=== PATIENT | female | born 1950 | race African-American/Black ===

== ENCOUNTER 2017-11-28 09:16 | Emergency (ER) | payer OTHER, SELFPAY ==
[2017-11-28] MEDS ORDERED: ONDANSETRON 4 MG/2 ML VIAL ONE (10:02)
[2017-11-28 10:26] LABS: Absolute Lymphocytes (CBC) 1.9 K/uL (0.7-4.9); Absolute Monocytes 0.8 K/uL (0.1-1.3); Basophils % 0.6 % (0-1.3); Hematocrit 41.3 % (36.0-45.0); MCH 32.8 pg (27.0-35.0); MCV 97.6 fL (80-100); MPV 7.6 fL (7.6-11.3); Monocytes % 6.9 % (3.3-12.3); RBC Red Blood Cell Count 4.23 M/uL (3.86-4.86)
[2017-11-28 10:44] LABS: ALT/SGPT 20 U/L (12-78); AST/SGOT 20 U/L (15-37); Albumin 3.5 g/dL (3.4-5.0); Alkaline Phosphatase 115 U/L (45-117); BUN Blood Urea Nitrogen 10 mg/dL (7-18); Bicarbonate 27 mmol/L (21-32); Bilirubin Direct < 0.1 mg/dL (0-0.2); Bilirubin Total 0.2 mg/dL (0.2-1.0); Glucose Level 94 mg/dL (74-106); Lipase 86 U/L (73-393); Potassium 4.5 mmol/L (3.5-5.1); Protein, Total 7.3 g/dL (6.4-8.2); Sodium Level 141 mmol/L (136-145)
[2017-11-28 11:39] LABS: Urine Amorphous Sediment 3+ /HPF (NONE SEEN); Urine Bacteria NONE SEEN /HPF (<20); Urine Culture Reflex Order NOT NEEDED; Urine RBC NONE SEEN /HPF (NONE SEEN)
--- NOTE | 2017-11-28 12:12 | RAD REPORT ---
EXAM DESCRIPTION: CTAbdomen Pelvis W Contrast - 11/28/2017 11:47 am CLINICAL HISTORY: Abdominal pain. ABD PAIN COMPARISON: Abdomen Pelvis W Contrast dated 11/12/2016 TECHNIQUE: Biphasic CT imaging of the abdomen and pelvis was performed with 100 ml non-ionic IV cont rast. All CT scans are performed using dose optimization technique as appropriate and may include automated exposure control or mA/KV adjustment according to patient size. FINDINGS: The lung bases are clear.Small hiatal hernia. The liver, spleen, pancreas, right adrenal gland and kidneys are within normal limits. 3 cm left adre nal mass, stable. No bowel obstruction, free air, free fluid or abscess. Scattered colonic diverticulosis. Inflammatory changes are present in the left lower quadrant involving the a segment of distal descending colon me asuring 3 cm. Appendectomy. No evidence of significant lymphadenopathy. No suspicious bony findings. IMPRESSION: Short segment of the sigmoid colon shows wall thickening and inflammatory changes most s uggestive of acute diverticulitis. A similar finding was present on the prior study as well in this r egion. Followup colonoscopy would be recommended evaluate for underlying mass.
--- NOTE | 2017-11-28 12:16 | EDPHYS ---
Physician Documentation [facility] Name: Irma Godoy Age: 67 yrs Sex: Female : 1950 Arrival Date: 11/28/2017 Time: 09:17 Bed 20 Private MD: None, None ED Physician Rafy Carias HPI: 11/28 09:49 This 67 yrs old Black Female presents to ER via Ambulatory with complaints of Abdominal rn Pain. 09:49 The patient presents with abdominal pain in the left lower quadrant. Onset: The rn symptoms/episode began/occurred yesterday. The symptoms do not radiate. Associated signs and symptoms: Pertinent positives: diarrhea, nausea, Pertinent negatives: blood in stools, fever. The symptoms are described as intermittent, sharp. Modifying factors: The symptoms are alleviated by nothing, the symptoms are aggravated by nothing. Severity of pain: At its worst the pain was mild in the emergency department the pain is unchanged. The patient has experienced a previous episode. The patient has not recently seen a physician. Historical: - Allergies: :33 No Known Allergies; hb - Home Meds: 09:33 Truvada oral oral [Active]; Norvir oral oral [Active]; Prezista oral oral [Active]; hb - PMHx: 09:33 HIV; hb - PSHx: 09:33 Appendectomy; Hysterectomy; Hernia repair; hb - Immunization history:: Adult Immunizations up to date. - Social history:: Smoking status: Patient/guardian denies using tobacco. - Ebola Screening: : No symptoms or risks identified at this time. - Family history:: not pertinent. - Hospitalizations: : No recent hospitalization is reported. ROS: 09:49 Constitutional: Negative for fever, chills, and weight loss, Eyes: Negative for injury, rn pain, redness, and discharge, Cardiovascular: Negative for chest pain, palpitations, and edema, Respiratory: Negative for shortness of breath, cough, wheezing, and pleuritic chest pain, Abdomen/GI: + abd pain/nausea/diarrhea MS/Extremity: Negative for injury and deformity, Skin: Negative for injury, rash, and discoloration, Neuro: Negative for headache, weakness, numbness, tingling, and seizure. Exam: 09:49 Constitutional: This is a well developed, well nourished patient who is awake, alert, rn and in no acute distress. Head/Face: Normocephalic, atraumatic. Cardiovascular: Regular rate and rhythm with a normal S1 and S2. No gallops, murmurs, or rubs. Normal PMI, no JVD. No pulse deficits. Respiratory: Lungs have equal breath sounds bilaterally, clear to auscultation and percussion. No rales, rhonchi or wheezes noted. No increased work of breathing, no retractions or nasal flaring. Abdomen/GI: soft, + LLQ tenderness, no rebound, no masses Back: No spinal tenderness. No costovertebral tenderness. Full range of motion. Skin: Warm, dry with normal turgor. Normal color with no rashes, no lesions, and no evidence of cellulitis. MS/ Extremity: Pulses equal, no cyanosis. Neurovascular intact. Full, normal range of motion. Equal circumference. Neuro: Awake and alert, GCS 15, oriented to person, place, time, and situation. Cranial nerves II-XII grossly intact. Motor strength 5/5 in all extremities. Sensory grossly intact. Vital Signs: 09:27 BP 118 / 91; Pulse 73; Resp 16; Temp 97.5(TE); Pulse Ox 100% on R/A; Pain 8/10; hb 11:15 BP 120 / 71; Pulse 82; Resp 18; Pulse Ox 97% on R/A; aj1 13:12 BP 121 / 90; Pulse 80; Resp 18; Pulse Ox 97% on R/A; aj1 MDM: 09:25 Patient medically screened. rn 12:14 Differential diagnosis: diverticulitis, non-specific abd pain, Ureterolithiasis, rn urinary tract infection. Data reviewed: vital signs, nurses notes, lab test result(s), radiologic studies, CT scan, and as a result, I will discharge patient. Counseling: I had a detailed discussion with the patient and/or guardian regarding: the historical points, exam findings, and any diagnostic results supporting the discharge/admit diagnosis, lab results, radiology results, the need for outpatient follow up, to return to the emergency department if symptoms worsen or persist or if there are any questions or concerns that arise at home. Response to treatment: the patient's symptoms have mildly improved after treatment, and as a result, I will discharge patient. Special discussion: Based on the patient's Hx, exam, and Dx evaluation, there is no indication for emergent surgery or inpatient Tx. It is understood by the patient/guardian that if the Sx's persist or worsen they need to return immediately for re-evaluation. I discussed with the patient/guardian in detail that at this point there is no indication for admission to the hospital. It is understood, however, that if the symptoms persist or worsen the patient needs to return immediately for re-evaluation. 11/28 09:49 Order name: Basic Metabolic Panel; Complete Time: 11:55 rn 11/28 09:49 Order name: CBC with Diff; Complete Time: 10:34 rn 11/28 09:49 Order name: Hepatic Function; Complete Time: rn 11/28 09:49 Order name: Lipase; Complete Time: rn 11/28 09:49 Order name: Urine Microscopic Only; Complete Time: : rn 11/28 11:03 Order name: Urine Dipstick--Ancillary (enter results) bd 11/28 09:49 Order name: IV Saline Lock; Complete Time: 10:11 rn 11/28 09:49 Order name: Labs collected and sent; Complete Time: 10:11 rn 11/28 09:49 Order name: CT Abd/Pelvis - W/Contrast; Complete Time: 12:13 rn 11/28 09:49 Order name: Urine Dipstick-Ancillary (obtain specimen); Complete Time: 10:25 rn Administered Medications: 10:10 Drug: Zofran 4 mg Route: IVP; Site: left forearm; aj1 12:53 Follow up: Response: No adverse reaction aj1 13:11 Drug: Cipro 400 mg Volume: 200 ml; Route: IVPB; Infused Over: 60 mins; Site: left aj1 forearm; 13:11 Drug: Flagyl 500 mg Volume: 100 ml; Route: IVPB; Rate: 200 ml/hr; Infused Over: 30 aj1 mins; Site: left forearm; Disposition: 11/28/17 12:15 Discharged to Home. Impression: Diverticulitis of large intestine without perforation or abscess without bleeding. - Condition is Stable. - Discharge Instructions: Diverticulitis. - Prescriptions for Flagyl 500 mg Oral Tablet - take 1 tablet by ORAL route every 8 hours for 10 days; 30 tablet. Cipro 500 mg Oral Tablet - take 1 tablet by ORAL route every 12 hours for 10 days; 20 tablet. Zofran ODT 4 mg Oral tablet,disintegrating - place 1 tablet by TRANSLINGUAL route every 8-10 hours As needed; 15 tablet. - Medication Reconciliation Form, Thank You Letter, Antibiotic Education, Prescription Opioid Use, Work release form form. - Follow up: Private Physician; When: As needed; Reason: Recheck today's complaints, Re-evaluation by your physician. - Problem is new. - Symptoms have improved. Signatures: Dispatcher [employer] EDVianney Loredo RN RN aj1 Rafy Carias MD MD rn Baxter, Heather, RN RN Lubna Zamudio RN RN tw2 Corrections: (The following items were deleted from the chart) 14:54 12:15 11/28/2017 12:15 Discharged to Home. Impression: Diverticulitis of large tw2 intestine without perforation or abscess without bleeding. Condition is Stable. Forms are Medication Reconciliation Form, Thank You Letter, Antibiotic Education, Prescription Opioid Use. Follow up: Private Physician; When: As needed; Reason: Recheck today's complaints, Re-evaluation by your physician. Problem is new. Symptoms have improved. rn
--- NOTE | 2017-11-28 12:16 | ER ---
Nurse's Notes [facility] Name: Irma Godoy Age: 67 yrs Sex: Female : 1950 Arrival Date: 11/28/2017 Time: 09:17 Bed 20 Private MD: None, None Diagnosis: Diverticulitis of large intestine without perforation or abscess without bleeding Presentation: 11/28 09:26 Presenting complaint: Patient states: LLQ pain that started last night, nausea and hb diarrhea since this morning. Transition of care: patient was not received from another setting of care. Onset of symptoms was November 27, 2017. Risk Assessment: Do you want to hurt yourself or someone else? Patient reports no desire to harm self or others. Care prior to arrival: None. : Method Of Arrival: Ambulatory hb : Acuity: KATHERINE 3 hb 14:53 Initial Sepsis Screen: Does the patient meet any 2 criteria? No. Patient's initial tw2 sepsis screen is negative. Does the patient have a suspected source of infection? No. Patient's initial sepsis screen is negative. Historical: - Allergies: :33 No Known Allergies; hb - Home Meds: 09:33 Truvada oral oral [Active]; Norvir oral oral [Active]; Prezista oral oral [Active]; hb - PMHx: :33 HIV; hb - PSHx: 09:33 Appendectomy; Hysterectomy; Hernia repair; hb - Immunization history:: Adult Immunizations up to date. - Social history:: Smoking status: Patient/guardian denies using tobacco. - Ebola Screening: : No symptoms or risks identified at this time. - Family history:: not pertinent. - Hospitalizations: : No recent hospitalization is reported. Screenin:34 Abuse screen: Denies threats or abuse. Denies injuries from another. Nutritional hb screening: No deficits noted. Tuberculosis screening: No symptoms or risk factors identified. Fall Risk None identified. Assessment: 10:12 General: Appears in no apparent distress. comfortable, Behavior is calm, cooperative, aj1 appropriate for age. Pain: Complains of pain in abdomen. Neuro: Level of Consciousness is awake, alert, obeys commands. Cardiovascular: Patient's skin is warm and dry. Respiratory: Airway is patent Respiratory effort is even, unlabored, Respiratory pattern is regular, symmetrical. GI: Abdomen is non-distended, Reports diarrhea, nausea, Patient currently denies vomiting. : No signs and/or symptoms were reported regarding the genitourinary system. EENT: No signs and/or symptoms were reported regarding the EENT system. Derm: No signs and/or symptoms reported regarding the dermatologic system. Skin is pink, warm \T\ dry. normal. Musculoskeletal: No signs and/or symptoms reported regarding the musculoskeletal system. Circulation, motion, and sensation intact. 10:26 Reassessment: Notified Sherron in [place] that patient finished her contrast at 1010. aj1 11:15 Reassessment: Patient appears in no apparent distress at this time. No changes from aj1 previously documented assessment. Patient and/or family updated on plan of care and expected duration. Pain level reassessed. Patient is alert, oriented x 3, equal unlabored respirations, skin warm/dry/pink. 11:40 Reassessment: Patient taken to CT via wheelchair. aj1 12:00 Reassessment: Patient returned to room. aj1 12:15 Reassessment: Patient appears in no apparent distress at this time. No changes from aj1 previously documented assessment. Patient and/or family updated on plan of care and expected duration. Pain level reassessed. Patient is alert, oriented x 3, equal unlabored respirations, skin warm/dry/pink. 13:11 Reassessment: Patient appears in no apparent distress at this time. No changes from aj1 previously documented assessment. Patient and/or family updated on plan of care and expected duration. Pain level reassessed. Patient is alert, oriented x 3, equal unlabored respirations, skin warm/dry/pink. 13:11 Reassessment: Patient discharge pending finishing IV antibiotics. aj1 Vital Signs: 09:27 BP 118 / 91; Pulse 73; Resp 16; Temp 97.5(TE); Pulse Ox 100% on R/A; Pain 8/10; hb 11:15 BP 120 / 71; Pulse 82; Resp 18; Pulse Ox 97% on R/A; aj1 13:12 BP 121 / 90; Pulse 80; Resp 18; Pulse Ox 97% on R/A; aj1 ED Course: 09:17 Patient arrived in ED. sb2 09:17 None, None is Private Physician. sb2 09:22 Lubna Zamudio, KAREEM is Primary Nurse. tw2 09:25 Rafy Carais MD is Attending Physician. rn 09:27 Triage completed. hb 09:33 Arm band placed on left wrist. hb 09:50 Report given to KAREEM Cruz. tw2 09:56 Missed attempt(s): 20 gauge in left antecubital area. by ERT. Eliud Bleeding aj1 controlled, band aid applied, catheter tip intact. 10:11 Inserted saline lock: 22 gauge in left forearm, using aseptic technique. aj1 10:12 Patient has correct armband on for positive identification. aj1 10:12 No provider procedures requiring assistance completed. aj1 11:46 CT completed. Patient tolerated procedure well. Patient moved to CT via wheelchair. Patient moved back from CT. 11:47 CT Abd/Pelvis - W/Contrast In Process Unspecified. EDMS 12:52 Vianney Meeks, RN is Primary Nurse. aj1 14:53 IV discontinued, intact, bleeding controlled, No redness/swelling at site. Pressure tw2 dressing applied. Administered Medications: 10:10 Drug: Zofran 4 mg Route: IVP; Site: left forearm; aj1 12:53 Follow up: Response: No adverse reaction aj1 13:11 Drug: Cipro 400 mg Volume: 200 ml; Route: IVPB; Infused Over: 60 mins; Site: left aj1 forearm; 13:11 Drug: Flagyl 500 mg Volume: 100 ml; Route: IVPB; Rate: 200 ml/hr; Infused Over: 30 aj1 mins; Site: left forearm; Outcome: 12:15 Discharge ordered by . rn 14:53 Discharged to home ambulatory. tw2 14:53 Condition: stable 14:53 Discharge instructions given to patient, Instructed on discharge instructions, follow up and referral plans. medication usage, Demonstrated understanding of instructions, follow-up care, medications, Prescriptions given X 3. 14:54 Patient left the ED. tw2 Signatures: Dispatcher [employer] EDDC Vianney Meeks RN RN aj1 Joslyn Navarro Rafy Carias MD MD rn Baxter, Heather, RN RN hb Wise, Tara, RN RN tw2 Sue Reynolds sb2
[2017-11-28 12:49] LABS: Urine Blood NEGATIVE (NEG); Urine Glucose NEGATIVE (NEG); Urine Protein NEGATIVE (NEG); Urine pH 5.5 (5.0-7.0)
[2017-11-28] MEDS ORDERED: CIPROFLOXACIN 400mg IV 400 MG/200 ML BAG IV ONE (13:10)
[2017-11-28] MEDS ORDERED: METRONIDAZOLE 500mg IVPB 500 MG/100 ML BAG IV ONE (13:10)
[2017-11-28 15:19] VITALS: TEMP 97.5
[2017-11-28 15:20] VITALS: O2SAT 97
[2017-11-28 15:21] VITALS: BP 121/90
== END 2017-11-28 14:54 | disposition home or self-care (01) ==
LOC: ER 09:16
DX: K57.32 Diverticulitis of large intestine without perforation or abscess without bleeding (principal); Z21 Asymptomatic human immunodeficiency virus [HIV] infection status
CPT/HCPCS: 36415; 74177; 80048; 80076; 83690; 85025; J0744; J2405; Q9967; 81003; 81015